=== PATIENT | male | born 1995 | race Caucasian/White ===

== ENCOUNTER 2016-12-23 22:03 | Emergency (ER) | payer BC ==
[~2016-12-23 22:03] MED LIST: MOTRIN IB200 M1 PO
== END 2016-12-23 23:23 | disposition home or self-care (01) ==
LOC: SED 22:03
DX: K08.89 Other specified disorders of teeth and supporting structures (principal); Z88.8 Allergy status to other drugs, medicaments and biological substances
CPT/HCPCS: 99283